=== PATIENT | female | born 1955 | race Two or more races ===

== ENCOUNTER 2017-10-06 13:08 | Emergency (ER) | payer MEDICARE, MEDICAID ==
[~2017-10-06] VITALS: Ht 149.9 cm; Wt 77.2 kg
[~2017-10-06 13:08] MED LIST: AMLO5TAB16 PO
[2017-10-06] MEDS ORDERED: diazepam 5mg tablet PO ONE (15:10)
[2017-10-06 15:25] VITALS: BP 131/75
== END 2017-10-06 15:24 | disposition home or self-care (01) ==
LOC: ER 13:09
DX: M54.6 Pain in thoracic spine (principal); M54.2 Cervicalgia; Z88.1 Allergy status to other antibiotic agents; Z98.890 Other specified postprocedural states
CPT/HCPCS: 72040; 72070; 99284

== ENCOUNTER 2018-08-12 13:05 | Emergency (ER) | payer MEDICARE, MEDICAID ==
[~2018-08-12] VITALS: Ht 149.9 cm; Wt 77.5 kg
[2018-08-12 13:31] VITALS: BP 140/85
[2018-08-12] MEDS ORDERED: LEVO500T2 PO (15:24)
[2018-08-12] MEDS ORDERED: BENZ-16 PO (15:24)
[2018-08-12] MEDS ORDERED: triamcinolone acetonide 40mg/ml inj IM ONE (15:25)
== END 2018-08-12 15:45 | disposition home or self-care (01) ==
LOC: ER 13:05
DX: J22 Unspecified acute lower respiratory infection (principal); G89.29 Other chronic pain; Z98.890 Other specified postprocedural states; Z88.1 Allergy status to other antibiotic agents; Z88.8 Allergy status to other drugs, medicaments and biological substances; Z79.899 Other long term (current) drug therapy
CPT/HCPCS: 96372; 99283; J3301

== ENCOUNTER 2018-09-29 09:15 | Emergency (ER) | payer MEDICARE, MEDICAID ==
[~2018-09-29] VITALS: Ht 149.9 cm; Wt 78.3 kg
[2018-09-29 09:28] VITALS: BP 132/83
[2018-09-29] MEDS ORDERED: ketorolac trometh inj. 60 MG/2 ML VIAL IM ONE (10:35)
[2018-09-29 10:54] LABS: CLARITY,URINE CLEAR (Clear); COLOR,URINE YELLOW (Yellow); GLUCOSE, URINE 250 mg/dl (Neg); KETONES,URINE NEGATIVE (Neg); LEUKOCYTE ESTERASE ,URINE NEGATIVE (Neg); NITRITES, URINE NEGATIVE (Neg); OCCULT BLOOD,URINE NEGATIVE (Neg); PH,URINE 5.5 (4.8-8.0); PROTEIN,URINE TRACE mg/dl (Neg); UROBILINOGEN,URINE 0.2 E.U/dL (0.2-1.0)
[2018-09-29 10:56] LABS: UA COLLECTION TYPE NON-SPECIFIED
[2018-09-29 11:04] LABS: MUCUS STRANDS MODERATE /LPF (Neg); SQUAMOUS EPITHELIAL CELL,UR MODERATE /LPF (FEW)
[2018-09-29 11:05] LABS: BACTERIA,URINE 1+ /HPF (Neg); RBC,URINE 0-2 /HPF (0-2); WBC,URINE 0-4 /HPF (0-4)
[2018-09-29] MEDS ORDERED: TRAM50TA2 PO (12:34)
== END 2018-09-29 13:03 | disposition home or self-care (01) ==
LOC: ER 09:15
DX: M54.5 Low back pain (principal); G89.29 Other chronic pain; R53.1 Weakness; I10 Essential (primary) hypertension; E11.9 Type 2 diabetes mellitus without complications; Z88.1 Allergy status to other antibiotic agents; Z88.8 Allergy status to other drugs, medicaments and biological substances; Z79.899 Other long term (current) drug therapy; Z98.890 Other specified postprocedural states
CPT/HCPCS: 72148; 81001; 96372; 99284; J1885

== ENCOUNTER 2018-12-20 02:57 | Emergency (ER) | payer MEDICARE, MEDICAID ==
[~2018-12-20] VITALS: Ht 149.9 cm; Wt 80.0 kg
[2018-12-20] MEDS ORDERED: clindamycin 600mg/D5W 50ml 50 ML IV ONE (03:35)
[2018-12-20] MEDS ORDERED: piperacillin/tazo 3.375gm/50ml 50 ML IV ONE (03:35)
[2018-12-20] MEDS ORDERED: normal saline 1000ML IV soln IV ONE (03:35)
[2018-12-20] MEDS ORDERED: ondansetron/PF 4mg/2ml inj IV ONE (03:40)
[2018-12-20] MEDS ORDERED: normal saline 1000ML IV soln IVB ONE (03:40)
[2018-12-20] MEDS ORDERED: acetaminophen 325mg tablet PO ONE (03:45)
[2018-12-20 04:13] LABS: BASOPHILS % (AUTO) 0.4 % (0-1); EOSINOPHILS # (AUTO) 0.1 X10'3 (0-0.9); EOSINOPHILS % (AUTO) 0.7 % (0-6); HEMATOCRIT 40.6 % (35.0-45.0); HEMOGLOBIN 13.8 g/dl (12.0-16.0); LYMPHOCYTES # (AUTO) 1.1 X10'3 (1.1-4.8); LYMPHOCYTES % (AUTO) 9.8 % (21-51); MEAN CORPUSCULAR HEMOGLOBIN 31.6 PG (27.0-31.0); MEAN CORPUSCULAR VOLUME 93.1 FL (78-98); MEAN PLATELET VOLUME 7.4 FL (7.4-10.4); MONOCYTES # (AUTO) 0.7 X10'3 (0-0.9); MONOCYTES % (AUTO) 6.1 % (2-12); NEUTROPHILS # (AUTO) 9.7 X10'3 (1.8-7.7); PLATELET COUNT 246 X10'3 (140-440); RED BLOOD COUNT 4.36 X10'6 (4.20-5.60); RED CELL DISTRIBUTION WIDTH 13.4 % (11.5-14.5); WHITE BLOOD COUNT 11.7 X10'3 (4.5-11.0)
[2018-12-20 04:23] LABS: ALANINE AMINOTRANSFERASE 32 U/L (12-78); ALBUMIN 3.5 G/DL (3.4-5.0); ALBUMIN/GLOBULIN RATIO 1.1 (1.1-1.5); ALKALINE PHOSPHATASE 97 IU/L (46-116); ANION GAP 8 (8-16); ASPARTATE AMINO TRANSFERASE 29 U/L (10-37); BILIRUBIN,TOTAL 0.4 MG/DL (0.1-1.0); BLOOD UREA NITROGEN 21 MG/DL (7-18); BUN/CREATININE RATIO 20.4 (6.6-38.0); CALCIUM 9.2 MG/DL (8.5-10.1); CHLORIDE 101 MMOL/L (99-107); CREATININE 1.03 MG/DL (0.40-0.90); GLUCOSE 286 MG/DL (70-104); MAGNESIUM 1.8 MG/DL (1.5-2.4); POTASSIUM 3.7 MMOL/L (3.5-5.1); SODIUM 137 MMOL/L (135-145); TOTAL CARBON DIOXIDE 28.2 MMOL/L (24-32); TOTAL PROTEIN 6.7 G/DL (6.4-8.2); eGFR 54 ML/MIN
[2018-12-20] MEDS ORDERED: LEVO750T21 PO (04:46)
[2018-12-20] MEDS ORDERED: CLIN150C8 PO (04:46)
[2018-12-20 05:04] VITALS: BP 121/65
[2018-12-21] MEDS ORDERED: LISI10TA4 PO (22:44)
[2018-12-21] MEDS ORDERED: LEVO50TA8 PO (22:44)
[2018-12-21] MEDS ORDERED: CETI10TA14 (22:44)
[2018-12-21] MEDS ORDERED: ALBU18HF2 IH (22:44)
[2018-12-21] MEDS ORDERED: GLIP5TAB13 PO (22:44)
[2018-12-21] MEDS ORDERED: FLUO40CA PO (22:44)
[2018-12-21] MEDS ORDERED: FLUT15.87 NAS (22:44)
[2018-12-21] MEDS ORDERED: BUDE10.22 IH (22:44)
[2018-12-21] MEDS ORDERED: LIRA0.6P2 SQ (22:44)
[2018-12-21] MEDS ORDERED: SENN-145 PO (22:44)
[2018-12-21] MEDS ORDERED: HYDR12.5 PO (22:44)
[2018-12-21] MEDS ORDERED: HYDR25TA4 PO (22:44)
[2018-12-21] MEDS ORDERED: CYCL-1 PO (23:19)
[2018-12-21] MEDS ORDERED: CETI-102 PO (23:19)
[2018-12-21] MEDS ORDERED: PEG15DRO4 OP (23:28)
== END 2018-12-20 05:33 | disposition home or self-care (01) ==
LOC: ER 02:57
DX: S61.432A Puncture wound without foreign body of left hand, initial encounter (principal); L03.114 Cellulitis of left upper limb; R50.9 Fever, unspecified; I10 Essential (primary) hypertension; E11.9 Type 2 diabetes mellitus without complications; G89.29 Other chronic pain; Z98.890 Other specified postprocedural states; Z88.1 Allergy status to other antibiotic agents; Z88.8 Allergy status to other drugs, medicaments and biological substances; Z79.899 Other long term (current) drug therapy; W55.01XA Bitten by cat, initial encounter; Y93.89 Activity, other specified; Y92.89 Other specified places as the place of occurrence of the external cause; Y99.9 Unspecified external cause status
CPT/HCPCS: 36415; 80053; 83605; 83735; 84145; 85025; 87040; 96365; 96375; 99283; J2405; J2543; J7030; J3490

== ENCOUNTER 2018-12-21 18:16 | Observation (INO) | payer MEDICARE, MEDICAID ==
[~2018-12-21] VITALS: Ht 149.9 cm; Wt 80.0 kg
[~2018-12-21 18:16] MED LIST changes: +CLIN150C8 PO; +LEVO750T21 PO
[2018-12-21] MEDS ORDERED: piperacillin/tazo 3.375gm/50ml 50 ML IV ONE (21:00)
[2018-12-21] MEDS ORDERED: temazepam 15mg capsule PO PRN (21:00)
[2018-12-21] MEDS ORDERED: vancomycin/NS 1 GM ADD-VANTAGE 250 ML IV ONE (21:00)
[2018-12-21] MEDS ORDERED: normal saline 1000ML IV soln IV ONE (21:00)
[2018-12-21] MEDS ORDERED: potassium Cl 40MEQ/NS 500ml 500 ML IV PRN ×2 (21:20)
[2018-12-21] MEDS ORDERED: acetaminophen 325mg tablet PO PRN ×2 (21:20)
[2018-12-21] MEDS ORDERED: magnesium 2GM in 50ml NS 50 ML IV PRN (21:20)
[2018-12-21] MEDS ORDERED: magnesium Cl slow-release 64mg tablet PO PRN (21:20)
[2018-12-21] MEDS ORDERED: ondansetron/PF 4mg/2ml inj IV PRN (21:20)
[2018-12-21] MEDS ORDERED: potassium Cl 20 mEq SR tablet PO PRN ×2 (21:20)
[2018-12-21] MEDS ORDERED: magnesium 4gm in 100ml NS 100 ML IV PRN (21:20)
--- NOTE | 2018-12-21 21:30 | NUR ---
Patient in room [facility]TH[facility] 4011. I have received report from SANTO Brown and had the opportunity to ask questions and assume patient care.
[2018-12-21 21:46] LABS: BASOPHILS % (AUTO) 0.5 % (0-1); EOSINOPHILS # (AUTO) 0.2 X10'3 (0-0.9); EOSINOPHILS % (AUTO) 2.5 % (0-6); HEMATOCRIT 41.1 % (35.0-45.0); HEMOGLOBIN 13.9 g/dl (12.0-16.0); LYMPHOCYTES # (AUTO) 1.8 X10'3 (1.1-4.8); LYMPHOCYTES % (AUTO) 22.2 % (21-51); MEAN CORPUSCULAR HEMOGLOBIN 31.9 PG (27.0-31.0); MEAN CORPUSCULAR HGB CONC 33.8 g/dL (33.0-36.5); MEAN CORPUSCULAR VOLUME 94.2 FL (78-98); MEAN PLATELET VOLUME 7.3 FL (7.4-10.4); MONOCYTES # (AUTO) 0.5 X10'3 (0-0.9); MONOCYTES % (AUTO) 6.2 % (2-12); NEUTROPHILS # (AUTO) 5.6 X10'3 (1.8-7.7); NEUTROPHILS % (AUTO) 68.6 % (42-75); PLATELET COUNT 242 X10'3 (140-440); RED BLOOD COUNT 4.36 X10'6 (4.20-5.60); RED CELL DISTRIBUTION WIDTH 13.5 % (11.5-14.5); WHITE BLOOD COUNT 8.1 X10'3 (4.5-11.0)
[2018-12-21 21:55] VITALS: BP 141/77
[2018-12-21 22:01] LABS: URINE HCG NEGATIVE (NEG)
[2018-12-21 22:04] LABS: CLARITY,URINE CLEAR (Clear); COLOR,URINE YELLOW (Yellow); GLUCOSE, URINE NEGATIVE (Neg); KETONES,URINE NEGATIVE (Neg); LEUKOCYTE ESTERASE ,URINE NEGATIVE (Neg); NITRITES, URINE NEGATIVE (Neg); OCCULT BLOOD,URINE NEGATIVE (Neg); PROTEIN,URINE NEGATIVE (Neg); UROBILINOGEN,URINE 0.2 E.U/dL (0.2-1.0)
[2018-12-21 22:10] LABS: ALANINE AMINOTRANSFERASE 35 U/L (12-78); ALBUMIN 3.5 G/DL (3.4-5.0); ALBUMIN/GLOBULIN RATIO 0.9 (1.1-1.5); ALKALINE PHOSPHATASE 88 IU/L (46-116); ANION GAP 6 (8-16); ASPARTATE AMINO TRANSFERASE 35 U/L (10-37); BILIRUBIN,TOTAL 0.3 MG/DL (0.1-1.0); BLOOD UREA NITROGEN 14 MG/DL (7-18); BUN/CREATININE RATIO 13.9 (6.6-38.0); CALCIUM 9.7 MG/DL (8.5-10.1); CHLORIDE 103 MMOL/L (99-107); CREATININE 1.01 MG/DL (0.40-0.90); GLUCOSE 115 MG/DL (70-104); MAGNESIUM 1.9 MG/DL (1.5-2.4); POTASSIUM 3.2 MMOL/L (3.5-5.1); SODIUM 141 MMOL/L (135-145); TOTAL CARBON DIOXIDE 32.4 MMOL/L (24-32); TOTAL PROTEIN 7.4 G/DL (6.4-8.2); eGFR 55 ML/MIN
[2018-12-21 22:11] LABS: UA COLLECTION TYPE CLN CATCH MIDSTREAM
[2018-12-21] MEDS: normal saline 1000ml 1,000 ML IV SCH (22:25)
[2018-12-21] MEDS ORDERED: LEVO50TA8 PO (22:44)
[2018-12-21] MEDS ORDERED: ALBU18HF2 IH (22:44)
[2018-12-21] MEDS ORDERED: FLUO40CA PO (22:44)
[2018-12-21] MEDS ORDERED: HYDR12.5 PO (22:44)
[2018-12-21] MEDS ORDERED: HYDR25TA4 PO (22:44)
[2018-12-21] MEDS ORDERED: GLIP5TAB13 PO (22:44)
[2018-12-21] MEDS ORDERED: SENN-145 PO (22:44)
[2018-12-21] MEDS ORDERED: CETI10TA14 (22:44)
[2018-12-21] MEDS ORDERED: FLUT15.87 NAS (22:44)
[2018-12-21] MEDS ORDERED: BUDE10.22 IH (22:44)
[2018-12-21] MEDS ORDERED: LISI10TA4 PO (22:44)
[2018-12-21] MEDS ORDERED: LIRA0.6P2 SQ (22:44)
[2018-12-21] MEDS ORDERED: CYCL-1 PO (23:19)
[2018-12-21] MEDS ORDERED: CETI-102 PO (23:19)
--- NOTE | 2018-12-21 23:25 | NUR ---
PAGER ID: [phone] MESSAGE: [phone] HOLLI OLIVEIRA COMPLETED THE MED REC THAT ER DIDN'T DO. YOU CAN LOOK AT IT NOW. THANKS GRANT [id number]
[2018-12-21] MEDS ORDERED: PEG15DRO4 OP (23:28)
[2018-12-21] MEDS ORDERED: albuterol 2.5 MG/3 ML nebule NEB PRN (23:55)
[2018-12-22] MEDS: ibuprofen 200mg tablet PO PRN ×3 (00:05→17:10)
--- NOTE | 2018-12-22 06:15 | NUR ---
Patient in room ORTHO 4011. I have received report from Nita BLANCHARD and had the opportunity to ask questions and assume patient care.
[2018-12-22 06:18] VITALS: BP 143/70
--- NOTE | 2018-12-22 06:19 | NUR ---
Problems reprioritized. Patient report given, questions answered & plan of care reviewed with SANTO cabrera.
[2018-12-22 07:04] LABS: BASOPHILS % (AUTO) 0.5 % (0-1); EOSINOPHILS # (AUTO) 0.2 X10'3 (0-0.9); EOSINOPHILS % (AUTO) 3.7 % (0-6); HEMATOCRIT 37.5 % (35.0-45.0); HEMOGLOBIN 12.7 g/dl (12.0-16.0); LYMPHOCYTES # (AUTO) 1.4 X10'3 (1.1-4.8); MEAN CORPUSCULAR HEMOGLOBIN 31.8 PG (27.0-31.0); MEAN CORPUSCULAR HGB CONC 33.8 g/dL (33.0-36.5); MEAN CORPUSCULAR VOLUME 94.1 FL (78-98); MEAN PLATELET VOLUME 7.1 FL (7.4-10.4); MONOCYTES # (AUTO) 0.4 X10'3 (0-0.9); MONOCYTES % (AUTO) 6.3 % (2-12); NEUTROPHILS # (AUTO) 4.5 X10'3 (1.8-7.7); NEUTROPHILS % (AUTO) 68.5 % (42-75); PLATELET COUNT 229 X10'3 (140-440); RED BLOOD COUNT 3.99 X10'6 (4.20-5.60); RED CELL DISTRIBUTION WIDTH 12.9 % (11.5-14.5); WHITE BLOOD COUNT 6.5 X10'3 (4.5-11.0)
[2018-12-22 07:11] LABS: ALBUMIN 2.8 G/DL (3.4-5.0); ANION GAP 7 (8-16); BLOOD UREA NITROGEN 13 MG/DL (7-18); BUN/CREATININE RATIO 13.8 (6.6-38.0); CALCIUM 8.6 MG/DL (8.5-10.1); CHLORIDE 108 MMOL/L (99-107); CREATININE 0.94 MG/DL (0.40-0.90); GLUCOSE 127 MG/DL (70-104); MAGNESIUM 1.8 MG/DL (1.5-2.4); POTASSIUM 3.8 MMOL/L (3.5-5.1); SODIUM 141 MMOL/L (135-145); TOTAL CARBON DIOXIDE 26.2 MMOL/L (24-32); eGFR 60 ML/MIN
[2018-12-22] MEDS: HYDROchlorothiazide 25mg tablet PO SCH (07:20)
[2018-12-22] MEDS: cetirizine 10mg tablet PO SCH (07:20)
[2018-12-22] MEDS: lisinopril 10 MG tablet PO SCH (07:20)
[2018-12-22] MEDS: levoTHYROXINE 25mcg tablet PO SCH (07:20)
[2018-12-22] MEDS: FLUoxetine 20mg capsule PO SCH (07:21)
[2018-12-22] MEDS: fluticasone nasal spray 16GM bottle NS SCH ×2 (07:22→20:20)
[2018-12-22] MEDS: cyclobenzaprine 10mg tablet PO PRN ×2 (07:32→17:10)
[2018-12-22] MEDS ORDERED: non-formulary drug (Budesonide/Formoterol Fumarate (Symbicort 80-4.5 Mcg Inhaler) 2 PUFFS) IH SCH (08:00)
[2018-12-22] MEDS: K and/or MAG REPLACEMENT MC SCH (08:00)
[2018-12-22] MEDS: BUDESONIDE 0.25 MG/2 ML AMPUL.NEB IH SCH ×2 (08:59→19:35)
[2018-12-22] MEDS: albuterol 2.5 MG/3 ML nebule NEB SCH ×4 (08:59→19:35)
[2018-12-22] MEDS: vancomycin/NS 1 GM ADD-VANTAGE 250 ML IV SCH ×2 (09:52→22:11)
[2018-12-22 10:00] VITALS: BP 118/63
--- NOTE | 2018-12-22 10:21 | NUR ---
DM consult: Patient's A1c is 6.8; DM ed not warranted at this time. Will continue to follow. Addendum: 12/22/18 at [address] Amended: Links added.
--- NOTE | 2018-12-22 12:43 | NUR ---
Patient wanted to know if she could resume her home diabetes meds because she doesn't care to take insulin. Dr. Lieberman did not agree that patient should take these at this time because they are harder to control if patient goes to surgery. Patient understands is agreeable for insulin if needed.
[2018-12-22] MEDS: sennosides 8.6mg tablet PO SCH ×2 (13:08→20:20)
[2018-12-22] MEDS: amox tr/potassium clavulanate 875/125mg TAB PO SCH (17:07)
[2018-12-22 18:00] VITALS: BP 163/75
--- NOTE | 2018-12-22 18:00 | NUR ---
Patient in room ORTH[facility] 4011. I have received report from SANTO Rader and had the opportunity to ask questions and assume patient care.
--- NOTE | 2018-12-22 18:15 | NUR ---
Patient report given to Nita BLANCHARD
[2018-12-22] MEDS: famotidine 20mg tablet PO SCH (20:20)
--- NOTE | 2018-12-22 20:45 | NUR ---
Pt. friend came and told her that the cat that bite her did not had rabies .Dr. Mahajan was notified ,she told me to addressed it in the morning.During my assessment I saw redness and swelling up to left her arm and left thigh ,I notified Dr. Mahajan as well.we will continue to monitor pt. care.
[2018-12-22] MEDS ORDERED: sennosides 8.6mg tablet PO SCH (21:00)
[2018-12-22 22:00] VITALS: BP 125/63
[2018-12-23] MEDS: cyclobenzaprine 10mg tablet PO PRN ×3 (02:21→21:32)
[2018-12-23 06:00] VITALS: BP 148/67
--- NOTE | 2018-12-23 06:24 | NUR ---
Problems reprioritized. Patient report given, questions answered & plan of care reviewed with SANTO Upton.
[2018-12-23 06:29] LABS: ALBUMIN 2.8 G/DL (3.4-5.0); ANION GAP 5 (8-16); BLOOD UREA NITROGEN 9 MG/DL (7-18); BUN/CREATININE RATIO 12.2 (6.6-38.0); CALCIUM 8.8 MG/DL (8.5-10.1); CHLORIDE 107 MMOL/L (99-107); CREATININE 0.74 MG/DL (0.40-0.90); GLUCOSE 169 MG/DL (70-104); POTASSIUM 3.6 MMOL/L (3.5-5.1); SODIUM 141 MMOL/L (135-145); TOTAL CARBON DIOXIDE 29.3 MMOL/L (24-32); eGFR 79 ML/MIN
[2018-12-23 06:33] LABS: BASOPHILS % (AUTO) 0.5 % (0-1); EOSINOPHILS # (AUTO) 0.2 X10'3 (0-0.9); EOSINOPHILS % (AUTO) 4.4 % (0-6); HEMATOCRIT 38.5 % (35.0-45.0); LYMPHOCYTES # (AUTO) 1.3 X10'3 (1.1-4.8); LYMPHOCYTES % (AUTO) 26.2 % (21-51); MEAN CORPUSCULAR HEMOGLOBIN 31.8 PG (27.0-31.0); MEAN CORPUSCULAR HGB CONC 33.8 g/dL (33.0-36.5); MEAN CORPUSCULAR VOLUME 93.8 FL (78-98); MONOCYTES # (AUTO) 0.3 X10'3 (0-0.9); MONOCYTES % (AUTO) 6.9 % (2-12); NEUTROPHILS # (AUTO) 3.1 X10'3 (1.8-7.7); PLATELET COUNT 229 X10'3 (140-440); RED CELL DISTRIBUTION WIDTH 13.4 % (11.5-14.5)
[2018-12-23] MEDS: K and/or MAG REPLACEMENT MC SCH (06:46)
--- NOTE | 2018-12-23 06:53 | NUR ---
RECEIVED REPORT FROM SANTO HERRING
[2018-12-23] MEDS: albuterol 2.5 MG/3 ML nebule NEB SCH ×4 (07:00→19:54)
[2018-12-23] MEDS: FLUoxetine 20mg capsule PO SCH (07:07)
[2018-12-23] MEDS: amox tr/potassium clavulanate 875/125mg TAB PO SCH ×2 (07:07→17:42)
[2018-12-23] MEDS: sennosides 8.6mg tablet PO SCH ×2 (07:07→21:21)
[2018-12-23] MEDS: levoTHYROXINE 25mcg tablet PO SCH (07:07)
[2018-12-23] MEDS: ibuprofen 200mg tablet PO PRN ×2 (07:08→21:32)
[2018-12-23] MEDS: cetirizine 10mg tablet PO SCH (07:08)
[2018-12-23] MEDS: lisinopril 10 MG tablet PO SCH (07:09)
[2018-12-23] MEDS: HYDROchlorothiazide 25mg tablet PO SCH (07:09)
[2018-12-23] MEDS: fluticasone nasal spray 16GM bottle NS SCH ×2 (08:00→21:21)
[2018-12-23] MEDS: BUDESONIDE 0.25 MG/2 ML AMPUL.NEB IH SCH ×2 (09:00→19:54)
[2018-12-23] MEDS ORDERED: VANCOMYCIN LEVEL IV ONE (09:30)
[2018-12-23 10:00] VITALS: BP 124/66
[2018-12-23] MEDS: vancomycin/NS 1 GM ADD-VANTAGE 250 ML IV SCH (11:34)
[2018-12-23 18:00] VITALS: BP 142/53
--- NOTE | 2018-12-23 18:21 | NUR ---
PAGE TO DR. WITT MESSAGE: [id number] HOLLI OLIVEIRA DID YOU WANT A RABIES SHOT FOR THIS PATIENT? RICCARDO [phone]
[2018-12-23] MEDS: normal saline 1000ml 1,000 ML IV SCH (21:18)
[2018-12-23] MEDS: famotidine 20mg tablet PO SCH (21:20)
[2018-12-23] MEDS: vancomycin inj 1,250 MG in NS 250ml IV soln IV SCH (21:21)
[2018-12-23 22:00] VITALS: BP 139/77
--- NOTE | 2018-12-24 01:05 | NUR ---
Positive blood culture, G posi cocci and plaster from aerobic bottle. notified. No new order received.
[2018-12-24 06:00] VITALS: BP 137/61
[2018-12-24 06:20] LABS: BASOPHILS % (AUTO) 0.7 % (0-1); EOSINOPHILS # (AUTO) 0.2 X10'3 (0-0.9); EOSINOPHILS % (AUTO) 4.6 % (0-6); HEMATOCRIT 40.4 % (35.0-45.0); HEMOGLOBIN 13.8 g/dl (12.0-16.0); LYMPHOCYTES # (AUTO) 1.4 X10'3 (1.1-4.8); LYMPHOCYTES % (AUTO) 26.7 % (21-51); MEAN CORPUSCULAR HGB CONC 34.2 g/dL (33.0-36.5); MEAN CORPUSCULAR VOLUME 93.4 FL (78-98); MONOCYTES # (AUTO) 0.4 X10'3 (0-0.9); MONOCYTES % (AUTO) 6.8 % (2-12); NEUTROPHILS # (AUTO) 3.2 X10'3 (1.8-7.7); NEUTROPHILS % (AUTO) 61.2 % (42-75); PLATELET COUNT 236 X10'3 (140-440); RED BLOOD COUNT 4.33 X10'6 (4.20-5.60); RED CELL DISTRIBUTION WIDTH 13.2 % (11.5-14.5); WHITE BLOOD COUNT 5.2 X10'3 (4.5-11.0)
--- NOTE | 2018-12-24 06:43 | NUR ---
Problems reprioritized. Patient report given, questions answered & plan of care reviewed with katherine Sharp.
--- NOTE | 2018-12-24 06:46 | NUR ---
Patient in room ORTH[facility] 4011. I have received report from SANTO Sharp and had the opportunity to ask questions and assume patient care.
[2018-12-24 06:50] LABS: ALBUMIN 3.1 G/DL (3.4-5.0); ANION GAP 4 (8-16); BLOOD UREA NITROGEN 22 MG/DL (7-18); BUN/CREATININE RATIO 20.6 (6.6-38.0); CALCIUM 9.7 MG/DL (8.5-10.1); CHLORIDE 104 MMOL/L (99-107); CREATININE 1.07 MG/DL (0.40-0.90); GLUCOSE 185 MG/DL (70-104); MAGNESIUM 1.9 MG/DL (1.5-2.4); SODIUM 141 MMOL/L (135-145); TOTAL CARBON DIOXIDE 33.3 MMOL/L (24-32); eGFR 52 ML/MIN
[2018-12-24 07:00] VITALS: BP 152/68
[2018-12-24] MEDS: albuterol 2.5 MG/3 ML nebule NEB SCH ×2 (07:00→11:00)
[2018-12-24] MEDS: BUDESONIDE 0.25 MG/2 ML AMPUL.NEB IH SCH (07:42)
[2018-12-24] MEDS ORDERED: lactobacillus rhamnosus 10,000 MMU CELLS/CAPSULE PO SCH (08:00)
[2018-12-24] MEDS: K and/or MAG REPLACEMENT MC SCH (08:00)
[2018-12-24] MEDS: fluticasone nasal spray 16GM bottle NS SCH (08:00)
[2018-12-24] MEDS: HYDROchlorothiazide 25mg tablet PO SCH (08:56)
[2018-12-24] MEDS: FLUoxetine 20mg capsule PO SCH (08:57)
[2018-12-24] MEDS: sennosides 8.6mg tablet PO SCH (08:57)
[2018-12-24] MEDS: amox tr/potassium clavulanate 875/125mg TAB PO SCH (08:58)
[2018-12-24] MEDS: levoTHYROXINE 25mcg tablet PO SCH (08:58)
[2018-12-24] MEDS: cetirizine 10mg tablet PO SCH (08:58)
[2018-12-24 08:59] VITALS: BP_SYST 152
[2018-12-24] MEDS: lisinopril 10 MG tablet PO SCH (08:59)
[2018-12-24] MEDS ORDERED: AMOX-422 PO (09:54)
[2018-12-24] MEDS: vancomycin inj 1,250 MG in NS 250ml IV soln IV SCH (10:00)
[2018-12-24] MEDS ORDERED: tetanus & diphtheria toxoid (Td) vaccine 0.5ml IMVAC ONE ×2 (10:55→12:00)
--- NOTE | 2018-12-24 11:34 | NUR ---
Student documentation: I have reviewed and agree with all interventions, assessments performed and documented by Antonia Mace.
[2018-12-24] MEDS ORDERED: TETanus/Pertussis (Acell)/Diphther VAC/PF (Tdap-Adult) 0.5ml syringe IMVAC ONE (11:55)
--- NOTE | 2018-12-24 12:08 | NUR ---
Problems reprioritized. Patient report given, questions answered & plan of care reviewed with SANTO Sharp.
--- NOTE | 2018-12-24 14:14 | NUR ---
Called in script to [facility]. Took down to the lobby by axillary in a w/c. [facility] came to pick her up.
[2018-12-25] MEDS ORDERED: VANCOMYCIN LEVEL IV NR (09:30)
== END 2018-12-24 13:50 | disposition home or self-care (01) ==
LOC: ER 18:17 → ORTHO 4S 22:01
PROVIDERS: ADMIT Internal Medicine; ATTEND Internal Medicine
DX: S61.452D Open bite of left hand, subsequent encounter (principal); L03.114 Cellulitis of left upper limb; I10 Essential (primary) hypertension; E03.9 Hypothyroidism, unspecified; J44.9 Chronic obstructive pulmonary disease, unspecified; E11.649 Type 2 diabetes mellitus with hypoglycemia without coma; W55.01XD Bitten by cat, subsequent encounter
CPT/HCPCS: 36415; 73218; 80048; 80053; 80202; 81003; 81025; 82948; 83036; 83605; 83735; 84145; 85025; 85610; 87040; 87070; 90715; 94640; 94760; 96365; 96366; 96368; 96375; 99284; G0378; J2405; J2543; J3370; J7030; 90471

== ENCOUNTER 2019-04-24 11:42 | Emergency (ER) | payer MEDICARE, MEDICAID ==
[~2019-04-24] VITALS: Ht 149.9 cm; Wt 84.5 kg
[~2019-04-24 11:42] MED LIST changes: +ALBU18HF2 IH; -AMLO5TAB16 PO; +BUDE10.22 IH; +CETI-102 PO; -CLIN150C8 PO; +CYCL-1 PO; +FLUO40CA PO; +FLUT15.87 NAS; +GLIP5TAB13 PO; +HYDR25TA4 PO; +LEVO50TA8 PO; -LEVO750T21 PO; +LIRA0.6P2 SQ; +LISI10TA4 PO; +PEG15DRO4 OP; +SENN-145 PO
[2019-04-24] MEDS ORDERED: oxyCODONE IR 5mg (immed. release) tablet PO ONE (12:20)
[2019-04-24] MEDS ORDERED: LIDOcaine 5% patch TP ONE (12:20)
[2019-04-24] MEDS ORDERED: orphenadrine citrate 60mg/2ml inj. IM ONE (12:20)
[2019-04-24] MEDS ORDERED: OXYC-658 PO (12:21)
[2019-04-24 12:41] VITALS: BP 118/67
== END 2019-04-24 12:52 | disposition home or self-care (01) ==
LOC: ER 11:42
DX: M54.5 Low back pain (principal); I10 Essential (primary) hypertension; E11.9 Type 2 diabetes mellitus without complications; E07.9 Disorder of thyroid, unspecified; G89.29 Other chronic pain; F32.9 Major depressive disorder, single episode, unspecified; Z88.8 Allergy status to other drugs, medicaments and biological substances; Z79.899 Other long term (current) drug therapy; Z79.2 Long term (current) use of antibiotics
CPT/HCPCS: 96372; 99284; J2360

== ENCOUNTER 2020-06-18 13:37 | Emergency (ER) | payer MEDICARE, MEDICAID ==
[~2020-06-18] VITALS: Ht 144.8 cm; Wt 84.0 kg
[~2020-06-18 13:37] MED LIST changes: -CETI-102 PO; +CETI-90 PO
[2020-06-18 13:48] VITALS: BP 146/78
[2020-06-18] MEDS ORDERED: TETanus/Pertussis (Acell)/Diphther VAC/PF (Tdap-Adult) 0.5ml syringe IMVAC ONE (13:55)
[2020-06-18] MEDS ORDERED: LIDOcaine 1% W/epiNEPHrine 1:200,000 10ml vial IJ ONE (14:15)
[2020-06-18] MEDS ORDERED: LIDOcaine 1% w/epiNEPHrine 1:200,000 30ml vial IJ ONE (14:20)
[2020-06-18] MEDS ORDERED: CEPH250T PO (15:17)
== END 2020-06-18 15:28 | disposition home or self-care (01) ==
LOC: ER 13:38
DX: S91.312A Laceration without foreign body, left foot, initial encounter (principal); I10 Essential (primary) hypertension; E11.9 Type 2 diabetes mellitus without complications; F32.9 Major depressive disorder, single episode, unspecified; G89.29 Other chronic pain; W26.8XXA Contact with other sharp object(s), not elsewhere classified, initial encounter; Y93.89 Activity, other specified; Y92.89 Other specified places as the place of occurrence of the external cause; Y99.8 Other external cause status; Z88.1 Allergy status to other antibiotic agents; Z88.8 Allergy status to other drugs, medicaments and biological substances
CPT/HCPCS: 12002; 90471; 90715; 99284

== ENCOUNTER 2022-01-19 18:40 | Emergency (ER) | payer MEDICARE, MEDICAID ==
[~2022-01-19] VITALS: Ht 147.3 cm; Wt 80.9 kg
[~2022-01-19 18:40] MED LIST changes: +LISI10TA27 PO; -LISI10TA4 PO
[2022-01-19 19:33] LABS: BASOPHILS % (AUTO) 0.6 % (0-1); EOSINOPHILS % (AUTO) 0.6 % (0-6); HEMATOCRIT 46.3 % (35.0-45.0); HEMOGLOBIN 15.7 g/dl (12.0-16.0); LYMPHOCYTES # (AUTO) 1.5 X10'3 (1.1-4.8); LYMPHOCYTES % (AUTO) 39.1 % (21-51); MEAN CORPUSCULAR HEMOGLOBIN 31.6 PG (27.0-31.0); MEAN PLATELET VOLUME 7.8 FL (7.4-10.4); MONOCYTES # (AUTO) 0.6 X10'3 (0-0.9); MONOCYTES % (AUTO) 16.1 % (2-12); NEUTROPHILS # (AUTO) 1.6 X10'3 (1.8-7.7); NEUTROPHILS % (AUTO) 43.6 % (42-75); PLATELET COUNT 154 X10'3 (140-440); RED BLOOD COUNT 4.97 X10'6 (4.20-5.60); RED CELL DISTRIBUTION WIDTH 13.8 % (11.5-14.5); WHITE BLOOD COUNT 3.8 X10'3 (4.5-11.0)
[2022-01-19 19:49] LABS: ALANINE AMINOTRANSFERASE 45 U/L (12-78); ALBUMIN 3.5 G/DL (3.4-5.0); ALBUMIN/GLOBULIN RATIO 1.1 (1.1-1.5); ALKALINE PHOSPHATASE 73 IU/L (46-116); ANION GAP 14 (8-16); ASPARTATE AMINO TRANSFERASE 49 U/L (10-37); BILIRUBIN,TOTAL 0.4 MG/DL (0.1-1.0); BLOOD UREA NITROGEN 21 MG/DL (7-18); BUN/CREATININE RATIO 17.6 (6.6-38.0); CALCIUM 9.1 MG/DL (8.5-10.1); CHLORIDE 99 MMOL/L (99-107); CREATININE 1.19 MG/DL (0.40-0.90); GLUCOSE 284 MG/DL (70-104); POTASSIUM 3.4 MMOL/L (3.5-5.1); SODIUM 137 MMOL/L (135-145); TOTAL CARBON DIOXIDE 24.2 MMOL/L (24-32); TOTAL PROTEIN 6.6 G/DL (6.4-8.2); eGFR 45 ML/MIN
[2022-01-19] MEDS ORDERED: normal saline 1000ml 1,000 ML IV ONE (22:30)
[2022-01-19] MEDS ORDERED: BEBTELOVIMAB 175 MG/2 ML VIAL IV ONE (22:35)
[2022-01-19] MEDS ORDERED: epiNEPHrine 1 mg/ml inj IM PRN (22:50)
[2022-01-19] MEDS ORDERED: albuterol 2.5 MG/3 ML nebule NEB PRN (22:50)
[2022-01-19] MEDS ORDERED: acetaminophen 325mg tablet PO PRN (22:50)
[2022-01-19] MEDS ORDERED: famotidine/PF 10 mg/ml inj IV PRN (22:50)
[2022-01-19] MEDS ORDERED: hydrocortisone sod succ/PF 100mg/2ml inj. IV PRN (22:50)
[2022-01-19] MEDS ORDERED: diphenhydrAMINE 50 mg/ml inj IV PRN (22:50)
[2022-01-20 02:26] VITALS: BP 142/75
[2022-01-20] MEDS ORDERED: BENZ-38 PO (04:19)
== END 2022-01-20 05:43 | disposition home or self-care (01) ==
LOC: ER 18:40
DX: U07.1 COVID-19 (principal); R05.9 Cough, unspecified; R06.02 Shortness of breath; R07.89 Other chest pain; I10 Essential (primary) hypertension; J44.9 Chronic obstructive pulmonary disease, unspecified; E11.9 Type 2 diabetes mellitus without complications; G89.29 Other chronic pain; F32.A Depression, unspecified; Z98.890 Other specified postprocedural states; Z88.1 Allergy status to other antibiotic agents; Z88.8 Allergy status to other drugs, medicaments and biological substances; Z79.899 Other long term (current) drug therapy
CPT/HCPCS: 36415; 71045; 71275; 80053; 83880; 84484; 85025; 85379; 93005; 96361; 99285; J7030; M0222; Q0222

== ENCOUNTER 2023-11-03 12:05 | Emergency (ER) | payer MEDICARE, MEDICAID ==
[~2023-11-03] VITALS: Ht 170.2 cm; Wt 103.5 kg
[~2023-11-03 12:05] MED LIST changes: +ALEN70TA80 PO; +ALPH100C PO; +ATOR10TA70 PO; +BUDE10.2 PO; -BUDE10.22 IH; +CALC-1215 PO; +DOCU-148 PO; +ERTU15TA PO; -GLIP5TAB13 PO; +IBUP-1986 PO; +LEVO-43 PO; -LIRA0.6P2 SQ; +MONT-40 PO; +MULT-1085 PO; +OXYC-658 PO; -PEG15DRO4 OP; +POLY119P2 PO; -SENN-145 PO; +TIRZ10PE SQ; +TRAZ-251 PO; +VITA400T8 PO; +VITC500T PO
[2023-11-03 12:07] VITALS: TEMP 98.4
[2023-11-03 13:12] VITALS: BP 128/102; PULSE 70; RESP 16; O2SAT 96
[2023-11-03] MEDS: proparacaine 0.5% ophthalmic drops 15ml EACHEYE ONE (15:13)
[2023-11-03] MEDS: ibuprofen tablet 400 MG TABLET PO ONE (15:16)
[2023-11-03] MEDS: cephalexin 500mg capsule PO ONE (15:16)
[2023-11-03] MEDS: erythromycin ophthalmic ointment 1gm tube LEFTEYE ONE (15:17)
[2023-11-03] MEDS ORDERED: ERYT1OIN6 LEFTEYE (15:54)
[2023-11-03] MEDS ORDERED: IBUP-1984 PO (15:54)
[2023-11-03] MEDS ORDERED: CEPH-585 PO (15:55)
[2023-11-03] MEDS ORDERED: sulfacetamide 10% ophthalmic oint 3.5gm LEFTEYE ONE (16:00)
== END 2023-11-03 16:27 | disposition home or self-care (01) ==
LOC: ER 12:06
DX: H01.005 Unspecified blepharitis left lower eyelid (principal); I10 Essential (primary) hypertension; J44.9 Chronic obstructive pulmonary disease, unspecified; E11.9 Type 2 diabetes mellitus without complications; F32.A Depression, unspecified; Z88.5 Allergy status to narcotic agent; Z88.8 Allergy status to other drugs, medicaments and biological substances; Z79.899 Other long term (current) drug therapy
CPT/HCPCS: 99284

== ENCOUNTER 2023-12-15 07:31 | Day surgery (SDC) | payer MEDICARE, MEDICAID ==
[~2023-12-15] VITALS: Ht 148.6 cm; Wt 62.3 kg
[~2023-12-15 07:31] MED LIST changes: +CEPH-585 PO
[2023-12-15] MEDS ORDERED: TURM500C4 PO (07:53)
[2023-12-15 08:19] VITALS: BP 172/87; PULSE 79; RESP 12
[2023-12-15] MEDS ORDERED: MIDAZolam 1 MG/ML 5ML VIAL ONE (10:19)
[2023-12-15] MEDS ORDERED: fentaNYL/PF 50MCG/1 ML 2ML syringe ONE (10:19)
[2023-12-15] MEDS ORDERED: diphenhydrAMINE 50 mg/ml inj ONE (10:19)
[2023-12-15 11:13] VITALS: BP 144/81; PULSE 79; RESP 16; O2SAT 97
[2023-12-15 11:23] VITALS: BP 145/74; PULSE 75; RESP 14; O2SAT 97
[2023-12-15 11:33] VITALS: BP 103/88; PULSE 80; RESP 18; O2SAT 96
[2023-12-15 11:43] VITALS: BP 132/76; PULSE 77; RESP 15; O2SAT 97
== END 2023-12-15 12:08 | disposition home or self-care (01) ==
LOC: GI LAB 07:31
PROVIDERS: ATTEND Internal Medicine Gastroenterology
DX: K92.1 Melena (principal); C18.2 Malignant neoplasm of ascending colon; K57.30 Diverticulosis of large intestine without perforation or abscess without bleeding; Z80.0 Family history of malignant neoplasm of digestive organs
CPT/HCPCS: 45380; 45381; 99153; G0500; J2250; J3010; J7030; Z7512; 45335; 99152; A4620; J1200

== ENCOUNTER 2024-02-27 10:38 | Outpatient (CLI) | payer MEDICARE, MEDICAID ==
[~2024-02-27 10:38] MED LIST changes: -DOCU-148 PO; -MONT-40 PO; +TURM500C4 PO; -VITC500T PO
[2024-02-27 13:26] VITALS: BP 139/83; PULSE 90; RESP 18; O2SAT 98
== END 2024-02-27 23:59 | disposition home or self-care (01) ==
LOC: PUL REHAB 10:38
PROVIDERS: ATTEND Internal Medicine
DX: R06.09 Other forms of dyspnea (principal); J45.909 Unspecified asthma, uncomplicated
CPT/HCPCS: 94618

== ENCOUNTER 2024-03-01 15:51 | Outpatient (CLI) | payer MEDICARE, MEDICAID ==
[2024-03-01 16:48] VITALS: PULSE 79; RESP 16; O2SAT 94
== END 2024-03-01 23:59 | disposition home or self-care (01) ==
LOC: RT 15:51
PROVIDERS: ATTEND Pediatrics Sports Medicine
DX: R06.09 Other forms of dyspnea (principal)
CPT/HCPCS: 94010; 94727; 94729; 94760

== ENCOUNTER 2024-10-29 16:48 | Emergency (ER) | payer MEDICARE, MEDICAID ==
[~2024-10-29] VITALS: Ht 149.9 cm; Wt 64.4 kg
[2024-10-29 17:30] VITALS: BP 106/73; PULSE 73; RESP 18; TEMP 97.8; O2SAT 98
== END 2024-10-29 20:13 | disposition left against medical advice (07) ==
LOC: ER 16:50
DX: M79.601 Pain in right arm (principal); Z88.1 Allergy status to other antibiotic agents; Z88.5 Allergy status to narcotic agent; Z88.8 Allergy status to other drugs, medicaments and biological substances; Z53.21 Procedure and treatment not carried out due to patient leaving prior to being seen by health care provider

== ENCOUNTER 2025-08-07 15:59 | Emergency (ER) | payer MEDICARE, MEDICAID ==
[~2025-08-07] VITALS: Ht 148.6 cm; Wt 67.3 kg
[~2025-08-07 15:59] MED LIST changes: -CEPH-585 PO; -LEVO-43 PO; +LEVO-81 PO
[2025-08-07 17:16] VITALS: BP 140/72; PULSE 71; RESP 14; TEMP 98.2; O2SAT 100
--- NOTE | 2025-08-07 17:17 | Physician Documentation ---
History of Present Illness ~ Chief Complaint: See Chief Complaint Stated Complaint: NODULE CAUSING PAIN L ARMPIT AREA Time Seen by MD: 17:04 OK to notify your PCP?: Yes Primary Medical Doctor: BAKARI VIDAL [facility] Source: patient Mode of Arrival: POV Exam Limitations: no limitations HPI Presents for mild shortness of breath and abscess to left axillary. She reports that this began a couple of days ago and has been getting larger and hurting down into her breast region. She reports that she has active bilateral lung cancer. She was diagnosed in September of this year and underwent treatment of radiation which was unsuccessful. She reports that she is not taking chem otherapy and she refuses to have any more treatment for her lung cancer would rather just live with it". She reports that this nodule has not opened up or started draining but is very painful to the touch. She reports that the shortness of breath has been ongoing for months is not a new symptom. Denies any chest pain, cough, fever or runny nose. Medication Reconciliation Allergies: Coded Allergies: hydromorphone (Verified Allergy, Severe, SWELLING, 10/29/24) duloxetine (Verified Allergy, Unknown, muscle twitching, 10/29/24) erythromycin base (Verified Allergy, Unknown, LIVER TOXICITY, 10/29/24) gabapentin (Unverified Allergy, Unknown, SLEEPING X 3 DAYS., 10/29/24) psyllium (Verified Allergy, Unknown, ANAPHALATIC SHOCK, 10/29/24) tizanidine (Unverified Allergy, Unknown, ITCHING, 10/29/24) Uncoded Allergies: TYLENOL (Allergy, Unknown, "liver swollen up and painful", 11/03/23) Scheduled Alendronate Sodium (Alendronate Sodium), 1 TAB PO Q7D, (Reported) Atorvastatin Calcium (Atorvastatin Calcium), 0.5 TAB PO DAILY, (Reported) Calcium Carbonate/Vitamin D3 (Calcium + D 600 Mg Tablet), 1 EACH PO BID, (Reported) Cetirizine HCl (Zyrtec), 1 TAB PO DAILY, (Reported) Ertugliflozin Pidolate (Steglatro), 1 TAB PO QAM, (Reported) Fluoxetine Hcl (Fluoxetine Hcl), 40 MG PO DAILY, (Reported) Fluticasone Propionate (24 Hour Allergy Relief), 50 MCG PATRICIA BID, (Reported) Hydrochlorothiazide (Hydrochlorothiazide), 25 MG PO DAILY, (Reported) Ibuprofen (Ibuprofen), 1 TAB PO TID, (Reported) Levocarnitine (l-Carnitine), 0.5 TAB PO Q12H, (Reported) Levothyroxine Sodium (Levothyroxine Sodium), 75 MCG PO QAM, (Reported) Lisinopril (Lisinopril), 5 MG PO DAILY, (Reported) Multivitamin (Multi Vitamin Daily), 1 TAB PO DAILY, (Reported) Polyethylene Glycol 3350 (Miralax), 17 GM PO DAILY, (Reported) Thioctic Acid (Alpha Lipoic Acid), 600 MG PO BID, (Reported) Tirzepatide (Mounjaro), 12.5 MG SQ Q7D, (Reported) Trazodone HCl (Trazodone HCl), 1 TAB PO HS, (Reported) Turmeric/Turmeric Root Extract (Turmeric 500 mg Capsule), 1 CAP PO Q12H, (Reported) Vitamin E Acid Succinate (Vitamin E), 1 TAB PO DAILY, (Reported) Scheduled PRN Albuterol Sulfate (Ventolin Hfa), 2 PUFFS IH Q4HPRN PRN for SOB or wheezing, (Reported) Cyclobenzaprine* (Cyclobenzaprine*), 1 TABLET PO HS PRN for muscle spasms, (Reported) Oxycodone Hcl IR* (Oxycodone IR*), 1 TAB PO TID PRN for pain, (Reported) Miscellaneous Medications Budesonide/Formoterol Fumarate (Symbicort 160-4.5 Mcg Inhaler), 2 PUFFS PO, (Reported) Past Medical History Past Medical History: Hypertension, COPD, Liver Disease, *ENDOCRINE*, Diabetes, Thyroid (unspecified), Chronic Pain, Depression Past Surgical History: orthopedic surgeries Other Past Surgical History: lumbar nerve denervation Alcohol Use: None Drug Use: none Lives with: Family Lives In: Home Occupation: retired Review of Systems All Other Systems at this time: Reviewed and Negative Physical Exam Vital Signs: RN Vital Signs have been reviewed: Yes, Temperature: 98.3, Source: Temporal, Heart Rate: 71, Respiratory Rate: 15, BP: 152/68, Pulse Oximetry: 95, Weight: 67.300 Pulse Oximetry Reflects: adequate oxygenation Physical Exam General: Alert, no apparent distress. HEENT: PERRL, EOMI, no injection, moist mucous membranes. Neck: Full range of motion. Respiratory: No respiratory distress, lungs diminished bilaterally, no wheezes,crackles or rhonchi. Chest: No accessory muscle use. Cardiovascular: Regular rate and rhythm, no murmurs. Gastrointestinal: Soft, nontender, nondistended. Bowels sounds present. Extremities: Normal range of motion, no deformity. Neurologic: Oriented x4. Psychiatric: Normal mood and affect. Skin: Raised erythematous nodule to left axillary approximately 1.5 cm circular. Tender to palpation, no active drainage. There is induration of the tissue but no fluctuance. Progress Results/Orders Reviewed/noted all lab results: Yes Results/Orders Vital Signs 08/07/25 08/07/25 16:11 17:16 Temp 98.3 98.2 Pulse 71 71 Resp 15 14 B/P (MAP) 152/68 140/72 (94) Pulse Ox 95 100 Medical Decision Making Additional information obtaine: old records Findings Physical exam reveals a small abscess in her left axillary. There is no fluctuance of the tissue so an incision drainage may not be very successful. I discussed the risks and benefits of trying a small incision and drainage versus starting oral antibiotics and patient opts for oral antibiotics. Placed patient on Bactrim with the 1st dose given in the department rest sent to the pharmacy. She was given return instructions as well as follow up instructions. She was advised to do warm compresses to help with the pain to this area. Differential Dx:Considerations: Include: Candidiasis, Gangrene, Herpes zoster, Impetigo, Psoriaisis, Rosacea, Scabies, Scarlet fever Departure Disposition: 01 HOME / SELF CARE / HOMELESS Impression: Primary Impression: Abscess Condition: Stable Discharge Instructions: Abscess, Care After Additional Instructions: Please do warm compresses 3 times a day to provide comfort to this area. You can use Tylenol and/or ibuprofen for pain relief. Do not try to pop or pick at the abscess. If it opens and drains naturally that is fine but do not press on the site. Take all antibiotics as prescribed and finish the course. Return back here for any new or worsening symptoms and follow up with the primary care provider within the next week for a wound check. Referrals: NO PRIMARY CARE PROVIDER (PCP) Prescriptions Sulfamethoxazole/Trimethoprim (Bactrim Ds Tablet) 800 Mg-160 Mg Tablet 1 TAB PO Q12H for 10 Days, #20 TAB Prov: DAVON VALERIO NP 08/08/25 Education Educated: Patient Educated regarding: diagnosis, treatment, prognosis, need for follow up Additional Comment Medical Screen Exam This patient recieved a medical screening examination. After reviewing the individual's medical complaints with presenting symptoms and performing an appropriate physical examination, it was determined that no immediate life- threatening emergency medical condition is present. This individual is also not a women having contractions. Signature Scribe Signature: . Attestation: Scribed for Carol Rogersp by Carol Ceja NP . 08/07/25 19:54 Parts of this note were created using [employer] voice recognition software program. While efforts were made to correct any mistakes made by this voice recognition software program, nonsensical phrases may remain in this note. In addition, there may be errors and syntax, grammar, content and spelling. CAROL ROGERS Aug 07, 2025 17:17 DAVON VALERIO NP Aug 08, 2025 11:14
[2025-08-07] MEDS: sulfamethoxazole/trimethoprim DS (800/160mg) tablet PO ONE (17:26)
[2025-08-08] MEDS ORDERED: SULF1TAB49 PO (11:14)
== END 2025-08-07 17:27 | disposition home or self-care (01) ==
LOC: ER 16:00
DX: L02.412 Cutaneous abscess of left axilla (principal); J44.9 Chronic obstructive pulmonary disease, unspecified; I10 Essential (primary) hypertension; F32.A Depression, unspecified; G89.29 Other chronic pain; E11.9 Type 2 diabetes mellitus without complications; Z88.5 Allergy status to narcotic agent; Z88.8 Allergy status to other drugs, medicaments and biological substances; Z88.1 Allergy status to other antibiotic agents; Z79.899 Other long term (current) drug therapy
CPT/HCPCS: 99283